=== PATIENT | male | born 1990 | race Caucasian/White ===

== ENCOUNTER 2016-09-04 23:50 | Emergency (ER) | payer OTHER, BC ==
--- NOTE | ~2016-09-04 | CR4 ---
[facility] A Service of [facility] & [facility] RADIOLOGY TEXT RESULTS PATIENT: STACEY BRIONES LOCATION: [facility] : [birth year] UNIT #: [id number] AGE: [address]: Libby Shankar MD SEX: M ORDER DR: [id number] [facility] [address] [place], [place] [address] [id number] MR#: [id number] #: [id number] NAME: STACEY BRIONES : 1990 SEX: M STUDY DATE/TIME: 09/04/2016 22:44 UNIT: [facility] ROOM: STUDY DESCRIPTION: CR Abdomen Flat Upright or Dec Attending Physician: Libby Shankar M.D. Ordering Physician: Libby Shankar M.D. Primary Care Physician: Susan Urban M.D. MEDICAL IMAGING REPORT This report is preliminary unless electronic signature is present EXAM Abdomen, 09/04/2016 HISTORY 26-year-old male with abdominal pain and constipation for 1 week. COMPARISON None FINDINGS 3 frontal flat and upright views of the abdomen demonstrate a nonobstructive bowel gas pattern. No free intraperitoneal air. No pathologic calcifications. Moderate stool burden noted throughout the colon. No basilar lung pathology. IMPRESSION Nonobstructive bowel gas pattern. Moderate stool burden throughout the colon. Dictated by... Bishop Peters M.D. THIS IS AN ELECTRONICALLY VERIFIED REPORT Bishop Peters M.D. at 09/05/2016 11:30 PM Fawad TD: 09/05/2016 12:38 JOB #: [id number] MEDICAL IMAGING REPORT Page 1 of 1 COPY
[~2016-09-04 23:50] MED LIST: CENTRUM PO; CIPRO PO; CLARITIN10 MG PO; KEFLEX PO; LEXAPRO PO; LORTAB 7.5-5001 TAB PO; PRILOSEC PO
== END 2016-09-05 03:45 | disposition home or self-care (01) ==
LOC: CED 23:50
DX: K59.00 Constipation, unspecified (principal)
CPT/HCPCS: 74020; 99283